=== PATIENT | female | born 1970 | race African-American/Black ===

== ENCOUNTER 2017-04-27 09:36 | Outpatient (CLI) | payer BC ==
[2017-04-27 11:06] LABS: Red Blood Cell (RBC) Count 3.72 mill/uL (4.20-5.40); White Blood Cell (WBC) Count 9.6 thou/uL (4.8-10.8)
== END 2017-04-27 09:37 | disposition home or self-care (01) ==
LOC: LABBT 09:36
PROVIDERS: ATTEND Obstetrics & Gynecology
DX: Z01.812 Encounter for preprocedural laboratory examination (principal); N92.0 Excessive and frequent menstruation with regular cycle
CPT/HCPCS: 85027; 86850; 86900; 86901

== ENCOUNTER → 2017-05-01 | Day surgery (SDC) | payer BC ==
[2017-04-27 10:11] VITALS: BMI 46.7
--- NOTE | 2017-04-27 20:52 | HP ---
DATE OF ADMISSION: 05/01/2017 REASON FOR ADMISSION: Menometrorrhagia. SCHEDULED PROCEDURES: Dilation and curettage, hysteroscopy, endometrial ablation. HISTORY OF PRESENT ILLNESS: Ms. Dietrich is a 47-year-old 2, para 2, status post x2 , who has a longstanding history of menorrhagia, dysmenorrhea. She had a benign endometrial biopsy and desires conservative management, endometrial ablation. 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 PAST MEDICAL HISTORY: Significant for hypothyroidism and obesity. PAST SURGICAL HISTORY: Significant for C-sections, gastric bypass, partial thyroidectomy, and tubal ligation. MEDICATIONS: Include clonazepam, Synthroid, and sertraline. ALLERGIES: CODEINE, KEFLEX, and PENICILLIN. SOCIAL HISTORY: Denies tobacco, alcohol, IV drug use. FAMILY HISTORY: Noncontributory. REVIEW OF SYSTEMS: Noncontributory. PHYSICAL EXAMINATION: GENERAL: Black female in no acute distress. VITAL SIGNS: 5 feet 4 inches, weight 278, BMI 27.7, blood pressure 130/80. HEENT: Within normal limits. LUNGS: Clear to auscultation bilaterally. HEART: Regular rate and rhythm. BREASTS: No masses bilaterally. ABDOMEN: Soft, nontender, no rebound or guarding. PELVIC: Vulva without lesions. Vagina without discharge. Cervix parous, uterus anteverted, 6-week size. Adnexa, no masses bilaterally. EXTREMITIES: Without clubbing, cyanosis, or edema. LABORATORY AND X-RAY FINDINGS: Endometrial biopsy performed on 03/22/2017 reveals secretory endomet rium. Ultrasound performed back in January revealed a uterus measuring 9 x 4.5 cm with a 7 mm endometr ial thickness, normal right and left adnexa. No free fluid, no adnexal masses noted. IMPRESSION: Dysfunctional uterine bleeding with secretory endometrium and morbid obesity. PLAN: Discussed with patient options. We will proceed with D and C, hysteroscopy, endometrial abla tion with Shanthi. We will administer antibiotic prophylaxis with clindamycin secondary to allergie s and DVT prophylaxis with SCDs.
[~2017-05-01] MED LIST: Clindamycin/D5W 900 mg/50 ml Premix Bag ONE; Dexamethasone 20 MG/5 ML VIAL ONE; Fentanyl 100 MCG/2 ML VIAL ONE; Ketorolac Tromethamine 30 MG/ML VIAL ONE; Lidocaine 1% PF 5 ML VIAL ONE; Midazolam HCl 2 mg/2 ml Vial ONE; Ondansetron HCl/PF 4 MG/2 ML Vial ONE; Propofol 200 MG/20 ML VIAL ONE; Succinylcholine Chloride 20 MG/ML 10 ml SYRINGE FS ONE
--- NOTE | 2017-05-01 16:07 | OP ---
DATE OF PROCEDURE: 05/01/2017 PREOPERATIVE DIAGNOSIS: Menorrhagia with benign endometrial biopsy. POSTOPERATIVE DIAGNOSIS: Menorrhagia with benign endometrial biopsy. PROCEDURE: Hysteroscopy with endometrial ablation, global with Shanthi. SURGEON: Efren Jennings M.D. ANESTHESIA: General endotracheal. ESTIMATED BLOOD LOSS: Less than 10 mL. COMPLICATIONS: None. OPERATIVE FINDINGS: 1. Pre and post-sound 10 cm. 2. Normal appearing uterine cavity. 3. Normal Shanthi therapy cycle. 4. No evidence of perforation during the procedure. 5. Approximately 1200 mL of fluid used with 200 mL deficit, approximately 200 mL of fluid noted on the floor at the end of the procedure. DISPOSITION: To the recovery room in good condition. DESCRIPTION OF OPERATIVE PROCEDURE: The patient was taken to the operating room where general endot elsy anesthesia was achieved without difficulty. She was prepped and draped in dorsal lithotomy position in Jose stirrups. Side hand speculum was placed in vagina. The cervix was identified and grasped with tooth tenaculum at 1 o'clock. Uterus sounded to 10 cm, serially dilated to appropriat e level for Shanthi and for hysteroscopy with Truclear. Once this was achieved, the Truclear hyster oscope was introduced in the uterine cavity. The cavity was noted to be with appearance and intact. No evidence of perforation. Shanthi device was deployed at a length of 6 cm with internal cervica l os length of 4 cm. width of approximately 3.5 to 4 cm. Cavity integrity test x2 revealed i ntact cavity and Shanthi therapy cycle carried out for 120 seconds. The device was removed in the u sual manner and hysteroscope reintroduced which revealed good ablation, no evidence of perforation. Single tenaculum was removed after removing the hysteroscope and the speculum removed. The patient was awakened, extubated, and taken to the recovery room in good condition.
== END ==
LOC: SDC 08:22
PROVIDERS: ATTEND Obstetrics & Gynecology
PROC: 0U5B8ZZ Destruction of Endometrium, Via Natural or Artificial Opening Endoscopic (ICD-10-PCS; principal; 2017-05-01)
DX: N92.0 Excessive and frequent menstruation with regular cycle (principal); E89.0 Postprocedural hypothyroidism; E66.01 Morbid (severe) obesity due to excess calories; Z68.42 Body mass index [BMI] 45.0-49.9, adult; Z79.899 Other long term (current) drug therapy; Z88.1 Allergy status to other antibiotic agents; Z88.5 Allergy status to narcotic agent; Z88.0 Allergy status to penicillin; Z98.51 Tubal ligation status; Z98.84 Bariatric surgery status; Z90.49 Acquired absence of other specified parts of digestive tract; Z98.890 Other specified postprocedural states
CPT/HCPCS: 96374; J0131; J1100; J1885; J2001; J2250; J2405; J2704; J3010; J3490

== ENCOUNTER 2018-02-07 17:57 | Emergency (ER) | payer BC | END 2018-02-07 18:52 | disposition home or self-care (01) | LOC: SCSER 17:57 | DX: E11.649 Type 2 diabetes mellitus with hypoglycemia without coma (principal); E03.9 Hypothyroidism, unspecified; I10 Essential (primary) hypertension | CPT/HCPCS: 36415; 36416; 80053; 81003; 81015; 83036; 83880; 84439; 84443; 84481; 86140; 99284 ==

== ENCOUNTER 2020-01-06 09:06 | Outpatient (CLI) | payer BC ==
--- NOTE | 2020-01-06 10:12 | MMO ---
Bilateral MAMMO Bilat Screen DDI+RAYRAY. CLINICAL HISTORY: Patient is 49 years old and is seen for screening. The patient has the following family history of breast cancer: maternal grandmother. The patient has no personal history of cancer. VIEWS: The views performed were: bilateral craniocaudal with tomosynthesis and bilateral mediolateral oblique with tomosynthesis. FILMS COMPARED: The present examination has been compared to prior imaging studies performed at [facility] on 12/04/2008, 12/07/2009 and 01/27/2017, and at [facility] on 12/30/2013. This study has been interpreted with the assistance of computer-aided detection. MAMMOGRAM FINDINGS: The breasts are almost entirely fat. There are no suspicious masses, suspicious calcifications, or new areas of architectural distortion. IMPRESSION: THERE IS NO MAMMOGRAPHIC EVIDENCE OF MALIGNANCY. A ROUTINE FOLLOW-UP MAMMOGRAM IN 1 YEAR IS RECOMMENDED. THE RESULTS OF THIS EXAM WERE SENT TO THE PATIENT. ACR BI-RADS Category 1 - Negative MAMMOGRAPHY NOTE: 1. A negative mammogram report should not delay a biopsy if a dominant of clinically suspicious mass is present. 2. Approximately 10% to 15% of breast cancers are not detected by mammography. 3. Adenosis and dense breasts may obscure an underlying neoplasm. Reported by: SATNAM BILLINGSLEY MD Electonically Signed: [id number]
== END 2020-01-06 09:07 | disposition home or self-care (01) ==
LOC: BICMAMMO 09:06
PROVIDERS: ATTEND Family Medicine
DX: Z12.31 Encounter for screening mammogram for malignant neoplasm of breast (principal)
CPT/HCPCS: 77063; 77067

== ENCOUNTER 2022-02-22 09:44 | Outpatient (CLI) | payer BC | END 2022-02-22 09:45 | disposition home or self-care (01) | LOC: BICMAMMO 09:44 | PROVIDERS: ATTEND Family Medicine | DX: Z12.31 Encounter for screening mammogram for malignant neoplasm of breast (principal); Z80.3 Family history of malignant neoplasm of breast | CPT/HCPCS: 77063; 77067 ==

== ENCOUNTER 2024-07-26 07:48 | Outpatient (CLI) | payer BC | END 2024-07-26 07:49 | disposition home or self-care (01) | LOC: SCSRAD 07:48 | PROVIDERS: ATTEND Family Medicine | DX: M54.31 Sciatica, right side (principal); M47.816 Spondylosis without myelopathy or radiculopathy, lumbar region; M48.17 Ankylosing hyperostosis [Forestier], lumbosacral region; M51.379 Other intervertebral disc degeneration, lumbosacral region without mention of lumbar back pain or lower extremity pain; M46.1 Sacroiliitis, not elsewhere classified | CPT/HCPCS: 72110 ==

== ENCOUNTER 2024-08-21 09:17 | Outpatient (CLI) | payer BC | END 2024-08-21 09:18 | disposition home or self-care (01) | LOC: SCSMRI 09:17 | PROVIDERS: ATTEND Family Medicine | DX: M51.16 Intervertebral disc disorders with radiculopathy, lumbar region (principal); M47.26 Other spondylosis with radiculopathy, lumbar region; M48.061 Spinal stenosis, lumbar region without neurogenic claudication; M47.817 Spondylosis without myelopathy or radiculopathy, lumbosacral region | CPT/HCPCS: 72148 ==

== ENCOUNTER 2025-02-28 09:54 | Outpatient (CLI) | payer BC | END 2025-02-28 09:55 | disposition home or self-care (01) | LOC: BICMAMMO 09:54 | PROVIDERS: ATTEND Family Medicine | DX: Z12.31 Encounter for screening mammogram for malignant neoplasm of breast (principal); Z80.3 Family history of malignant neoplasm of breast | CPT/HCPCS: 77063; 77067 ==